=== PATIENT | male | born 1960 | race Caucasian/White ===

== ENCOUNTER 2019-06-13 01:50 | Emergency (ER) | payer OTHER ==
--- OUTSIDE RECORDS SUMMARY | 2019-06-13 01:53 | XMS REPORT ---
:1960 Author Organization [facility] Address [address] [place] [address] Care Team Providers Name Role Phone DERREK JOINER Leif Unavailable Unavailable Problems This patient has no known problems. Allergies, Adverse Reactions, Alerts This patient has no known allergies or adverse reactions. Medications This patient has no known medications. Encounters Start End Encounter Admission Attending Care Care Encounter Date/Time Date/Time Type Type Clinicians Facility Department ID 2019-04-08 2019-04-08 Outpatient [id number] 09:37:00 09:37:00 Results Test Description Test Time Test Comments Text Results Atomic Results Result Comments U/S ABDOMEN 2016-07-31 10:12:30 ABDOMINAL ULTRASOUND Location code: [id number] HISTORY: Hernia COMPARISON: NoneTECHNIQUE: Transverse and longitudinal sonographic images of the abdomen wereobtained. FINDINGS: The liver is normal in echogenicity with no focal mass orintrahepatic biliary dilatation. The right lobe measures approximately 13.4 cm. There are no intraluminal gallstones. Gallbladder is somewhat contracted.Gallbladder wall is normal at 2 mm. The common duct is normal at 6 mm indiameter. There is no pericholecystic fluid. Sonographic Nunes sign isnegative. The kidneys are normal in echogenicity with no focal mass, calcification orhydronephrosis. The right kidney measures 11.4 x 5.4 x 4.9 cm. The leftkidney measures 10.5 x 5.5 x 5.5cm. The spleen is unremarkable and measuresapproximately 12.8 cm in span. The visualized portions of the pancreas, abdominal aorta and inferior vena cavaare unremarkable. The pancreatic tail is obscured by overlying bowel gas. Imaging in the area of interest in the left inguinal region demonstrated ahernia with peristalsis measuring 3.3 x 1.4 x 2.7 cm.IMPRESSION:Left inguinal hernia containing bowel and peristalsis as detailed above.
[2019-06-13] MEDS ORDERED: MORPHINE 4 MG/ML SYR ONE (02:25)
[2019-06-13] MEDS ORDERED: KETOROLAC 30 MG/ML INJ ONE (02:25)
[2019-06-13] MEDS ORDERED: HYDRALAZINE HCL 20 MG/ML VIAL ONE (02:25)
[2019-06-13] MEDS ORDERED: ONDANSETRON 4 MG/2 ML VIAL ONE (02:26)
[2019-06-13 02:53] LABS: Absolute Lymphocytes (CBC) 1.9 K/uL (0.7-4.9); Basophils % 0.8 % (0-1.3); Hematocrit 47.5 % (39.6-49.0); Lymphocytes % 27.6 % (15.3-44.8); MPV 8.3 fL (7.6-11.3); RBC Red Blood Cell Count 5.41 M/uL (4.33-5.43)
--- NOTE | 2019-06-13 02:55 | ER ---
Nurse's Notes [facility] Name: Franky Nathan Age: 58 yrs Sex: Male : 1960 Arrival Date: 06/13/2019 Time: 01:57 Bed 16 Private MD: Diagnosis: Cervical disc disorder with radiculopathy Presentation: 06/13 01:47 Presenting complaint: EMS states: PT reports that approximately 9 months ago he was in jb4 an elevator that fell approximately 2-3 feet with a sudden stop. He has c5,6 and 7 disk herniation along with thoracic and lumbar herniations. He reports always being in pain but tonight it is much worse and he cannot get it under control. He reports normally taking Ibuprofen for the pain. 01:47 Transition of care: patient was not received from another setting of care. Onset of jb4 symptoms was August 21, 2018. Risk Assessment: Do you want to hurt yourself or someone else? Patient reports no desire to harm self or others. Initial Sepsis Screen: Does the patient meet any 2 criteria? No. Patient's initial sepsis screen is negative. Does the patient have a suspected source of infection? No. Patient's initial sepsis screen is negative. Care prior to arrival: None. 01:47 Method Of Arrival: EMS: [facility] 4 01:47 Acuity: SOHAIL 3 jb4 Triage Assessment: 01:47 General: Appears in no apparent distress. uncomfortable, Behavior is calm, cooperative, jb4 appropriate for age. Pain: Complains of pain in back and neck Pain does not radiate. Pain currently is 10 out of 10 on a pain scale. EENT: No deficits noted. Neuro: Level of Consciousness is awake, alert, obeys commands, Oriented to person, place, time, situation, Moves all extremities. Full function Speech is normal, Facial symmetry appears normal, Pupils are PERRLA. Cardiovascular: Patient's skin is warm and dry. Respiratory: Airway is patent Respiratory effort is even, unlabored, Respiratory pattern is regular, symmetrical. GI: No signs and/or symptoms were reported involving the gastrointestinal system. : No signs and/or symptoms were reported regarding the genitourinary system. Derm: Skin is intact, Skin is pink, warm \T\ dry. Musculoskeletal: Circulation, motion, and sensation intact. Range of motion: intact in all extremities. Historical: - Allergies: 01:47 No Known Allergies; jb4 - Home Meds: 01:47 losartan oral oral [Active]; jb4 - PMHx: 01:47 Hypertension; Degenerative disc disease; c5, c6, c7, thoracic, and lumbar disc jb4 herniation; Hernia; - PSHx: 01:47 left leg; jaw; back; Hernia repair; jb4 - Immunization history:: Adult Immunizations up to date. - Social history:: Smoking status: Patient/guardian denies using tobacco, Patient/guardian denies using alcohol, street drugs. - Ebola Screening: : No symptoms or risks identified at this time. Screenin:45 Abuse screen: Denies threats or abuse. Nutritional screening: No deficits noted. jb4 Tuberculosis screening: No symptoms or risk factors identified. Fall Risk None identified. Assessment: 01:45 General: see triage assessment.. jb4 02:40 Reassessment: Patient appears in no apparent distress at this time. Patient and/or jb4 family updated on plan of care and expected duration. Pain level reassessed. Patient is alert, oriented x 3, equal unlabored respirations, skin warm/dry/pink. 03:30 Reassessment: Patient appears in no apparent distress at this time. Patient and/or jb4 family updated on plan of care and expected duration. Pain level reassessed. Patient is alert, oriented x 3, equal unlabored respirations, skin warm/dry/pink. PT and verbalized understanding of d/c and follow up instructions. Pt ambulated out of ED with a steady gait. Vital Signs: 01:47 BP 210 / 121; Pulse 77; Resp 18; Temp 97.9(O); Pulse Ox 98% on R/A; Weight 63.5 kg (R); jb4 Height 5 ft. 4 in. (162.56 cm) (R); Pain 10/10; 02:30 BP 173 / 113; Pulse 76; Resp 16; Pulse Ox 96% on R/A; jb4 03:30 BP 130 / 95; Pulse 75; Resp 16; Pulse Ox 96% on R/A; jb4 01:47 Body Mass Index 24.03 (63.50 kg, 162.56 cm) 4 ED Course: :47 Arm band placed on right wrist. 4 01:47 Patient has correct armband on for positive identification. Bed in low position. Call jb4 light in reach. Side rails up X 1. Pulse ox on. NIBP on. 01:57 Patient arrived in ED. jb4 02:01 Triage completed. jb4 02:08 Ankush Roblero PA is PHCP. jr8 02:09 Deondre Blackburn MD is Attending Physician. jr8 02:11 Mickey Hennessy, RN is Primary Nurse. jb4 02:18 Initial lab(s) drawn, by me, sent to lab. Inserted saline lock: 20 gauge in left jb4 forearm, using aseptic technique. Blood collected. 03:39 No provider procedures requiring assistance completed. IV discontinued, intact, jb4 bleeding controlled, No redness/swelling at site. Pressure dressing applied. Administered Medications: 02:30 Drug: TORadol - Ketorolac 15 mg Route: IVP; Site: left forearm; jb4 03:00 Follow up: Response: No adverse reaction; Pain is decreased jb4 02:31 Drug: Zofran 4 mg Route: IVP; Site: left forearm; jb4 03:00 Follow up: Response: No adverse reaction jb4 02:33 Drug: morphine 4 mg {Note: Rass score 0.} Route: IVP; Site: left forearm; jb4 03:00 Follow up: Response: No adverse reaction; Pain is decreased; RASS: Alert and Calm (0) jb4 03:05 Drug: Valium 5 mg Route: IVP; Site: left forearm; jb4 03:30 Follow up: Response: No adverse reaction; Pain is decreased jb4 Outcome: 02:54 Discharge ordered by . jr8 03:39 Discharged to home ambulatory, with significant other. jb4 03:39 Condition: stable 03:39 Discharge instructions given to patient, significant other, Instructed on discharge instructions, follow up and referral plans. no drinking with medication, no driving heavy equipment, medication usage, Demonstrated understanding of instructions, follow-up care, medications, Prescriptions given X 3. 03:40 Patient left the ED. jb4 Signatures: Ankush Roblero PA PA jr8 Mickey Hennessy, RN RN jb4 Corrections: (The following items were deleted from the chart) 02:37 02:31 Zofran 4 mg IVP in left antecubital jb4 jb4
--- NOTE | 2019-06-13 02:56 | EDPHYS ---
Physician Documentation [facility] Name: Franky Nathan Age: 58 yrs Sex: Male : 1960 Arrival Date: 06/13/2019 Time: 01:57 Bed 16 Private MD: ED Physician Deondre Blackburn HPI: 06/13 02:13 This 58 yrs old Male presents to ER via EMS with complaints of neck pain/High jr8 Blood Pressure. 02:13 Patient stated that he has herniated discs in cervical spine that was diagnosed about 9 jr8 months ago from elevator injury. Stated that he is pending surgery. Tonight had acute episode of worsening of neck pain that is causing his BP to elevate. Could not control pain at home . Severity of symptoms: At their worst the symptoms were moderate in the emergency department the symptoms are unchanged. The patient has experienced similar episodes in the past, a few times. The patient has not recently seen a physician. Historical: - Allergies: 01:47 No Known Allergies; jb4 - Home Meds: 01:47 losartan oral oral [Active]; jb4 - PMHx: 01:47 Hypertension; Degenerative disc disease; c5, c6, c7, thoracic, and lumbar disc jb4 herniation; Hernia; - PSHx: 01:47 left leg; jaw; back; Hernia repair; jb4 - Immunization history:: Adult Immunizations up to date. - Social history:: Smoking status: Patient/guardian denies using tobacco, Patient/guardian denies using alcohol, street drugs. - Ebola Screening: : No symptoms or risks identified at this time. ROS: 02:13 Eyes: Negative for injury, pain, redness, and discharge, ENT: Negative for injury, jr8 pain, and discharge, Cardiovascular: Negative for chest pain, palpitations, and edema, Respiratory: Negative for shortness of breath, cough, wheezing, and pleuritic chest pain, Abdomen/GI: Negative for abdominal pain, nausea, vomiting, diarrhea, and constipation, Back: Negative for injury and pain, MS/Extremity: Negative for injury and deformity, Skin: Negative for injury, rash, and discoloration. 02:13 Neck: Positive for pain with movement, pain at rest, tenderness. 02:13 Neuro: Positive for headache. Exam: 02:13 Eyes: Pupils equal round and reactive to light, extra-ocular motions intact. Lids and jr8 lashes normal. Conjunctiva and sclera are non-icteric and not injected. Cornea within normal limits. Periorbital areas with no swelling, redness, or edema. ENT: Nares patent. No nasal discharge, no septal abnormalities noted. Tympanic membranes are normal and external auditory canals are clear. Oropharynx with no redness, swelling, or masses, exudates, or evidence of obstruction, uvula midline. Mucous membranes moist. Cardiovascular: Regular rate and rhythm with a normal S1 and S2. No gallops, murmurs, or rubs. Normal PMI, no JVD. No pulse deficits. Respiratory: Lungs have equal breath sounds bilaterally, clear to auscultation and percussion. No rales, rhonchi or wheezes noted. No increased work of breathing, no retractions or nasal flaring. Abdomen/GI: Soft, non-tender, with normal bowel sounds. No distension or tympany. No guarding or rebound. No evidence of tenderness throughout. Back: No spinal tenderness. No costovertebral tenderness. Full range of motion. Skin: Warm, dry with normal turgor. Normal color with no rashes, no lesions, and no evidence of cellulitis. MS/ Extremity: Pulses equal, no cyanosis. Neurovascular intact. Full, normal range of motion. Neuro: Awake and alert, GCS 15, oriented to person, place, time, and situation. Cranial nerves II-XII grossly intact. Motor strength 5/5 in all extremities. Sensory grossly intact. Cerebellar exam normal. Normal gait. 02:13 Neck: External neck: tenderness, that is mild, of the left mid cervical area, right mid cervical area, left trapezius and right trapezius, C-spine: appears grossly normal, no vertebral tenderness, no crepitus, Thyroid: appears normal, Trachea: is midline with no obvious abnormalities, ROM/movement: pain, that is mild, with any movement, Lymph nodes: no appreciated lymphadenopathy. Vital Signs: 01:47 BP 210 / 121; Pulse 77; Resp 18; Temp 97.9(O); Pulse Ox 98% on R/A; Weight 63.5 kg (R); jb4 Height 5 ft. 4 in. (162.56 cm) (R); Pain 10/10; 02:30 BP 173 / 113; Pulse 76; Resp 16; Pulse Ox 96% on R/A; jb4 03:30 BP 130 / 95; Pulse 75; Resp 16; Pulse Ox 96% on R/A; jb4 01:47 Body Mass Index 24.03 (63.50 kg, 162.56 cm) jb4 MDM: 02:09 Patient medically screened. jr8 02:42 Data reviewed: vital signs, nurses notes, lab test result(s). Data interpreted: Pulse jr8 oximetry: on room air is 96 %. Interpretation: normal. Counseling: I had a detailed discussion with the patient and/or guardian regarding: the historical points, exam findings, and any diagnostic results supporting the discharge/admit diagnosis, lab results, the need for outpatient follow up, a family practitioner, to return to the emergency department if symptoms worsen or persist or if there are any questions or concerns that arise at home. ED course: Patient doing better after pain medication. BP steadily coming down. Labs without acute findings. Will d/c home to f/u with PCP and ortho spine. 06/13 02:09 Order name: CBC with Diff; Complete Time: 02:52 jr8 06/13 02:09 Order name: Basic Metabolic Panel; Complete Time: 17:52 jr8 06/13 02:09 Order name: IV; Complete Time: 02:39 jr8 Administered Medications: 02:30 Drug: TORadol - Ketorolac 15 mg Route: IVP; Site: left forearm; jb4 03:00 Follow up: Response: No adverse reaction; Pain is decreased jb4 02:31 Drug: Zofran 4 mg Route: IVP; Site: left forearm; jb4 03:00 Follow up: Response: No adverse reaction jb4 02:33 Drug: morphine 4 mg {Note: Rass score 0.} Route: IVP; Site: left forearm; jb4 03:00 Follow up: Response: No adverse reaction; Pain is decreased; RASS: Alert and Calm (0) jb4 03:05 Drug: Valium 5 mg Route: IVP; Site: left forearm; jb4 03:30 Follow up: Response: No adverse reaction; Pain is decreased jb4 Disposition: 07:51 Co-signature as Attending Physician, Deondre Blackburn MD I agree with the assessment and brandie plan of care. Disposition: 06/13/19 02:54 Discharged to Home. Impression: Cervical disc disorder with radiculopathy. - Condition is Stable. - Discharge Instructions: Cervical Radiculopathy. - Prescriptions for Medrol (Que) 4 mg Oral Tablets, Dose Pack - take 1 tablet by ORAL route as directed - follow package instructions; 1 packet. meloxicam 15 mg Oral tablet - take 1 tablet by ORAL route once daily As needed; 20 tablet. Robaxin 500 mg Oral Tablet - take 2 tablet by ORAL route every 6 hours As needed; 40 tablet. - Medication Reconciliation Form, Thank You Letter, Antibiotic Education, Prescription Opioid Use form. - Follow up: Private Physician; When: 2 - 3 days; Reason: Recheck today's complaints, Continuance of care, Re-evaluation by your physician. - Problem is new. - Symptoms have improved. Signatures: Dispatcher [employer] EDHI Deondre Blackburn MD MD cha Roszak, Josh, PA PA jr8 Mickey Hennessy RN RN jb4 Corrections: (The following items were deleted from the chart) 03:40 02:54 06/13/2019 02:54 Discharged to Home. Impression: Cervical disc disorder with jb4 radiculopathy. Condition is Stable. Discharge Instructions: Cervical Radiculopathy. Prescriptions for Medrol (Que) 4 mg Oral Tablets, Dose Pack - take 1 tablet by ORAL route as directed - follow package instructions; 1 packet, meloxicam 15 mg Oral tablet - take 1 tablet by ORAL route once daily As needed; 20 tablet, Robaxin 500 mg Oral Tablet - take 2 tablet by ORAL route every 6 hours As needed; 40 tablet. and Forms are Medication Reconciliation Form, Thank You Letter, Antibiotic Education, Prescription Opioid Use. Follow up: Private Physician; When: 2 - 3 days; Reason: Recheck today's complaints, Continuance of care, Re-evaluation by your physician. Problem is new. Symptoms have improved. jr8
[2019-06-13] MEDS ORDERED: DIAZEPAM 10 MG/2 ML INJ SYRINGE ONE (02:58)
[2019-06-13 03:02] LABS: BUN Blood Urea Nitrogen 15 mg/dL (7-18); Bicarbonate 28 mmol/L (21-32); Glucose Level 112 mg/dL (74-106); Potassium 4.1 mmol/L (3.5-5.1); Sodium Level 139 mmol/L (136-145)
[2019-06-13 04:03] VITALS: BP 130/95
[2019-06-13 04:09] VITALS: TEMP 97.2
[2019-06-13 04:14] VITALS: O2SAT 100
== END 2019-06-13 03:40 | disposition home or self-care (01) ==
LOC: ER 01:50
DX: M50.10 Cervical disc disorder with radiculopathy, unspecified cervical region (principal); I10 Essential (primary) hypertension
CPT/HCPCS: 85025; 80048; 36415; 96375; 96374; 99284; J2405; J0360; J3360